=== PATIENT | male | born 1985 | race Two or more races ===

== ENCOUNTER 2018-01-30 23:02 | Emergency (ER) | payer MEDICARE, OTHER ==
[2018-01-30 23:18] VITALS: BP 136/85; PULSE 100; RESP 20; TEMP 98.3; O2SAT 97
[2018-01-30] MEDS ORDERED: DiphenhydrAMINE 12.5 mg/5 ml LIQ UD (5 ml) PO STA (23:32)
--- NOTE | 2018-01-30 23:32 | C.PDOC ---
History Of Present Illness 32 yo male come in for evaluation of cold sx since today AM associated with nasal congestion, runny nose, intermittent headache. Pt sts, " I need work note and advised what I can take for my cold sx". Otherwise, pt denies high fever, chills, severe headache, dizziness, vertigo, drooling, earache, CP, SOB, dyspnea , wheezing, abd. pain, V/D, UTI sx. Ambulate to ED for evaluation, not in nay apparent distress. Time Seen by Provider: 01/30/18 23:25 Chief Complaint (Nursing): Flu-like Symptoms History Per: Patient Past Medical History Reviewed: Historical Data, Nursing Documentation, Vital Signs Vital Signs: Last Vital Signs Temp 98.3 F 01/30/18 23:15 Pulse 100 H 01/30/18 23:15 Resp 20 01/30/18 23:15 BP 136/85 01/30/18 23:15 Pulse Ox 97 01/30/18 23:15 - Medical History PMH: Bipolar Disorder Family History: States: No Known Family Hx - Social History Hx Tobacco Use: No Hx Alcohol Use: No Hx Substance Use: No Review Of Systems Except As Marked, All Systems Reviewed And Found Negative. Constitutional: Positive for: Malaise. Negative for: Fever, Chills ENT: Positive for: Nose Discharge, Nose Congestion. Negative for: Ear Pain, Ear Discharge, Throat Pain, Throat Swelling Cardiovascular: Negative for: Chest Pain Respiratory: Negative for: Cough, Shortness of Breath, Wheezing Gastrointestinal: Negative for: Nausea, Vomiting, Abdominal Pain, Diarrhea Genitourinary: Negative for: Dysuria Musculoskeletal: Negative for: Neck Pain, Back Pain Neurological: Negative for: Altered Mental Status, Dizziness Physical Exam - Physical Exam Appears: Well, Non-toxic, No Acute Distress Skin: Normal Color, Warm, Dry, No Rash Head: Normacephalic Eye(s): bilateral: PERRL Ear(s): Bilateral: Normal Nose: No Flaring, Discharge (B/L nasal congestion with copious clear rhinorrhea) , Other (mild B/L paranasal tenderness, no edema, no erythema) Oral Mucosa: Moist, No Drooling Tongue: Normal Appearing Lips: Normal Appearing Throat: No Erythema, No Drooling Neck: Trachea Midline, Supple, Other ((-) meningeal sign) Cardiovascular: Rhythm Regular, No Murmur Respiratory: No Decreased Breath Sounds, No Accessory Muscle Use, No Stridor, No Wheezing Gastrointestinal/Abdominal: Soft, No Tenderness, No Distention, No Guarding Back: No CVA Tenderness Extremity: Normal ROM, No Deformity, No Swelling Neurological/Psych: Oriented x3, Normal Speech ED Course And Treatment O2 Sat by Pulse Oximetry: 97 Pulse Ox Interpretation: Normal Progress Note: On re-eval, pt is AAO#3, not in any apparent distress. Afebrile , hemodynamicaly stable. Tolerate Po well in ED. PulsEOx 97% ra. Neck: Supple , (-) meningeal sign. ENT: exam c/w acute rhinorrhea, no other acute findings. Lungs: CTA B/L, BS equal B/L. ABd: benign, (-) guaridng, (-) rebound. Neurologicaly intact. Pt has clinical findings c/w URI. Patient advised. ref. to f/u with PMD in 1-2 days for re-eval. return to ED if any worsening or new changes. Disposition Counseled Patient/Family Regarding: Diagnosis, Need For Followup, Rx Given - Disposition Referrals: Ni Kelley FNP [Advanced Practice Nurse] - Disposition: HOME/ ROUTINE Disposition Time: 23:32 Condition: STABLE Additional Instructions: Encourage fluids Take medication as prescribed Follow up with PMD in 2-3 days for re-evaluation. Return to ED if any worsening or new changes Prescriptions: Loratadine [Claritin] 10 mg PO DAILY #10 tab Prednisone [Deltasone] 40 mg PO DAILY #6 tablet Pseudoephedrine HCl [Sudafed 12-Hour] 120 mg PO DAILY #7 tablet.er Instructions: Viral Upper Respiratory Infection, Adult (DC) Forms: [employer] (Slovenian), Work Excuse - Clinical Impression Clinical Impression: URI (upper respiratory infection)
== END 2018-01-30 23:41 | disposition home or self-care (01) ==
LOC: C.ER 23:02
DX: J06.9 Acute upper respiratory infection, unspecified (principal)

== ENCOUNTER 2018-02-28 23:09 | Emergency (ER) | payer OTHER ==
[2018-02-28 23:09] VITALS: BMI 28.7
[2018-02-28 23:16] VITALS: TEMP 97.7
[2018-03-01] LABS: ALB/GLOB RATIO 1.2 (1.0-2.1); ALBUMIN 4.1 g/dL (3.5-5.0); ALT/SGPT 29 U/L (21-72); AST/SGOT 33 U/L (17-59); BLOOD UREA NITROGEN 13 mg/dL (9-20); CALCIUM 9.1 mg/dl (8.6-10.4); GFR AFRICAN-AMERICAN > 60; GFR NON-AFRICAN AMERICAN > 60; LIPASE 44 U/L (23-300)
[2018-03-01 00:01] LABS: BASO % 0.3 % (0.0-2.0); EOS # 0.2 K/uL (0.0-0.7); EOS % 2.9 % (0.0-4.0); HEMOGLOBIN 13.1 g/dL (12.0-18.0); LYMPH # 1.9 K/uL (1.0-4.3); LYMPH % 27.7 % (20.0-40.0); MEAN CELL VOLUME 92.2 fL (80.0-94.0); MEAN CORPUSCULAR HEMOGLOBIN 31.3 pg (27.0-31.0); MEAN PLATELET VOLUME 7.1 fL (7.2-11.7); MONO # 0.4 K/uL (0.0-0.8); MONO % 5.3 % (0.0-10.0); NEUT # 4.3 K/uL (1.8-7.0); NEUT % 63.8 % (50.0-75.0); RBC 4.17 Mil/uL (4.40-5.90); RED CELL DISTRIBUTION WIDTH 12.8 % (11.5-14.5); WHITE BLOOD COUNT 6.8 K/uL (4.8-10.8)
[2018-03-01 00:08] LABS: URINE BILIRUBIN NEGATIVE (NEGATIVE); URINE BLOOD NEGATIVE (NEGATIVE); URINE CLARITY Clear (Clear); URINE COLOR Straw (YELLOW); URINE GLUCOSE (UA) NORMAL (Normal); URINE LEUKOCYTE ESTERASE NEG Leu/uL (Negative); URINE PROTEIN NEGATIVE (NEGATIVE); URINE UROBILINOGEN NORMAL mg/dL (0.2-1.0)
--- NOTE | 2018-03-01 00:15 | C.PDOC ---
History Of Present Illness 32 year old male presents to the ED c/o right sided chest pain, upper abdominal pain, and infra scapular pain that started approximately 5 hours ago. Patient reports he ate a slice of pizza with mushrooms after which he thinks the symptoms started. Patient reports pain worsens with movement and deep breaths. Patient denies nausea, vomit, SOB, diarrhea. Time Seen by Provider: 02/28/18 23:23 Chief Complaint (Nursing): Abdominal Pain History Per: Patient History/Exam Limitations: no limitations Onset/Duration Of Symptoms: Hrs (5) Current Symptoms Are (Timing): Still Present Context: Food Location Of Pain/Discomfort: Diffuse Radiation Of Pain To:: Back, Chest Quality Of Discomfort: "Pain" Associated Symptoms: Back Pain Exacerbating Factors: Food Alleviating Factors: None Recent travel outside of the [place]: No Additional History Per: Patient Past Medical History Reviewed: Historical Data, Nursing Documentation, Vital Signs Vital Signs: Last Vital Signs Temp 97.7 F 02/28/18 23:13 Pulse 74 03/01/18 00:39 Resp 18 03/01/18 00:39 BP 122/84 03/01/18 00:39 Pulse Ox 98 03/01/18 00:39 - Medical History PMH: Bipolar Disorder Comment Only: Schizophrenia (pt denies as per patient) Surgical History: No Surg Hx Family History: States: Unknown Family Hx - Social History Hx Tobacco Use: No Hx Alcohol Use: No Hx Substance Use: No - Immunization History Hx Tetanus Toxoid Vaccination: No Hx Influenza Vaccination: No Hx Pneumococcal Vaccination: No Review Of Systems Constitutional: Negative for: Fever, Chills Cardiovascular: Positive for: Chest Pain Respiratory: Negative for: Cough, Shortness of Breath Gastrointestinal: Positive for: Abdominal Pain. Negative for: Nausea, Vomiting Musculoskeletal: Positive for: Back Pain Skin: Negative for: Rash Neurological: Negative for: Weakness, Numbness Physical Exam - Physical Exam Appears: Non-toxic, No Acute Distress Skin: Normal Color, Warm, Dry Head: Atraumatic, Normacephalic Eye(s): bilateral: Normal Inspection Oral Mucosa: Moist Neck: Normal ROM, Supple Chest: Symmetrical, Tenderness (right inferior chest wall) Cardiovascular: Rhythm Regular, No Murmur Respiratory: Normal Breath Sounds, No Rales, No Rhonchi, No Wheezing Gastrointestinal/Abdominal: Soft, No Tenderness, No Guarding, No Rebound Back: Other (right infrascapular tenderness) Extremity: Normal ROM, No Tenderness, No Swelling Neurological/Psych: Oriented x3, Normal Motor, Normal Sensation Gait: Steady ED Course And Treatment - Laboratory Results Result Diagrams: 02/28/18 23:39 02/28/18 23:39 ECG: Interpreted By Me, Viewed By Me ECG Rhythm: Sinus Rhythm ECG Interpretation: Normal Interpretation Of ECG: Normal intervals, normal axis Rate From EC (BPM) O2 Sat by Pulse Oximetry: 97 (On RA) Pulse Ox Interpretation: Normal - Radiology CXR: Interpreted by Me, Viewed By Me CXR Interpretation: Yes: No Acute Disease. No: Infiltrates Medical Decision Making Medical Decision Making: Assessment: muscle spams Plan: * EKG * CXR * UA * Labs * Protonix 40 mg IVP * Toradol 30 mg IVP Patient reports he feels better, wants to be D/C and go home. Patient was D/C with musculoskeletal pain. Patient was advised to follow up with PMD in 1-2 days for further evaluation. Disposition Counseled Patient/Family Regarding: Studies Performed, Diagnosis, Need For Followup, Rx Given - Disposition Referrals: [facility] [Outside] Disposition: HOME/ ROUTINE Disposition Time: 00:30 Condition: IMPROVED Additional Instructions: follow up with your doctor or medical clinic in 2 days call to make an appointment take medications as needed return to ER if symptoms worsens or progress Prescriptions: Famotidine [Pepcid] 20 mg PO BID #20 tab Naproxen [Naprosyn] 500 mg PO BID PRN #16 tab PRN Reason: Pain, Moderate (4-7) Instructions: Muscle and Bone Pain (DC) Forms: General Discharge Instructions, [facility] (Azeri), Work Excuse - Clinical Impression Clinical Impression: Abdominal pain, Musculoskeletal chest pain - Scribe Statement The provider has reviewed the documentation as recorded by the Scribe Ventura Akthar All medical record entries made by the Scribe were at my direction and personally dictated by me. I have reviewed the chart and agree that the record accurately reflects my personal performance of the history, physical exam, medical decision making, and the department course for this patient. I have also personally directed, reviewed, and agree with the discharge instructions and disposition.
[2018-03-01 00:40] VITALS: BP 122/84; PULSE 74; RESP 18
[2018-03-01 00:45] VITALS: O2SAT 97
--- NOTE | 2018-03-01 11:22 | RAD ---
HISTORY: SOB COMPARISON: No prior. TECHNIQUE: Chest PA and lateral FINDINGS: LUNGS: No active pulmonary disease. PLEURA: No significant pleural effusion identified. No pneumothorax apparent. CARDIOVASCULAR: Normal. OSSEOUS STRUCTURES: No significant abnormalities. VISUALIZED UPPER ABDOMEN: Normal. OTHER FINDINGS: None. IMPRESSION: No active disease.
== END 2018-03-01 00:39 | disposition home or self-care (01) ==
LOC: MERGE 23:09 → C.ER 23:09
DX: R10.9 Unspecified abdominal pain (principal); R07.89 Other chest pain
CPT/HCPCS: 71046; 80053; 81001; 83690; 84484; 85025; 96374; 96375; 99285; C9113; J1885

== ENCOUNTER 2018-08-25 18:01 | Emergency (ER) | payer OTHER ==
[2018-08-25 18:03] VITALS: BMI 28.7
[2018-08-25 18:11] VITALS: RESP 18
--- NOTE | 2018-08-25 18:53 | C.PDOC ---
History Of Present Illness 33 y/o male, w/PMhx of bipolar disorder, presents to the ER complaining of headache which has been present for the past few weeks. Patient states that his psychiatrist recently changed his medications. Patient reports that he is taking Trileptal, Cogentin, and Respirdal.He notes that every time he takes the medications, he has a headache and feels tired. He also notes that his mother told him to leave her house today. Denies having CP, SOB, fever, chills, nausea, and vomiting. Time Seen by Provider: 08/25/18 18:53 Chief Complaint (Nursing): Psychiatric Evaluation History Per: Patient Onset/Duration Of Symptoms: Days Current Symptoms Are (Timing): Still Present Severity: Moderate Past Medical History Reviewed: Historical Data, Nursing Documentation, Vital Signs Vital Signs: Last Vital Signs Temp 97.9 F 08/25/18 21:22 Pulse 78 08/25/18 21:22 Resp 18 08/25/18 21:22 BP 131/87 08/25/18 21:22 Pulse Ox 99 08/26/18 13:07 - Medical History PMH: Bipolar Disorder Comment Only: Schizophrenia (pt denies as per patient) Surgical History: No Surg Hx Family History: States: No Known Family Hx - Social History Hx Tobacco Use: No Hx Alcohol Use: No Hx Substance Use: No - Immunization History Hx Tetanus Toxoid Vaccination: No Hx Influenza Vaccination: No Hx Pneumococcal Vaccination: No Review Of Systems Except As Marked, All Systems Reviewed And Found Negative. Constitutional: Negative for: Fever, Chills Cardiovascular: Negative for: Chest Pain Respiratory: Negative for: Shortness of Breath Neurological: Positive for: Headache Physical Exam - Physical Exam Appears: Non-toxic, No Acute Distress, Other (pressured speech) Skin: Normal Color, Warm, Dry Head: Atraumatic, Normacephalic Eye(s): bilateral: Normal Inspection Nose: Normal Oral Mucosa: Moist Neck: Supple, Other (no meningeal signs) Chest: Symmetrical Cardiovascular: Rhythm Regular Respiratory: Normal Breath Sounds, No Rales, No Rhonchi, No Wheezing Gastrointestinal/Abdominal: Normal Exam, Soft, No Tenderness, No Guarding, No Rebound Extremity: Normal ROM Extremity: Bilateral: Atraumatic Neurological/Psych: Oriented x3, No Normal Speech (pressured speech), Normal Motor, Normal Sensation ED Course And Treatment - Laboratory Results Result Diagrams: 08/25/18 20:33 08/25/18 20:33 O2 Sat by Pulse Oximetry: 99 (RA) Pulse Ox Interpretation: Normal Medical Decision Making Medical Decision Making: Plan: --Labs --UA 2111 medically clear: no meningeal signs, sy not worse of life, no sudden in onset. NO FND cleared by Crisis for f/u w/ pts psych will d/c home Disposition - Disposition Referrals: [facility] [Outside] [facility] [Outside] Disposition: HOME/ ROUTINE Disposition Time: 21:13 Condition: GOOD Additional Instructions: FOLLOW UP WITH YOUR PSYCHIATRIS DISCUSSED WITH CRISIS Instructions: Bipolar Disorder Forms: [employer] (Upper Sorbian) - Clinical Impression Clinical Impression: Psychiatric complaint - Scribe Statement The provider has reviewed the documentation as recorded by the Pattyibe Kathya Ferrer Provider Attestation: All medical record entries made by the Scribe were at my direction and personally dictated by me. I have reviewed the chart and agree that the record accurately reflects my personal performance of the history, physical exam, medical decision making, and the department course for this patient. I have also personally directed, reviewed, and agree with the discharge instructions and disposition.
[2018-08-25 20:21] LABS: URINE BILIRUBIN NEGATIVE (NEGATIVE); URINE BLOOD NEGATIVE (NEGATIVE); URINE CLARITY Clear (Clear); URINE COLOR Colorless (YELLOW); URINE GLUCOSE (UA) NORMAL (Normal); URINE LEUKOCYTE ESTERASE NEG Leu/uL (Negative); URINE PROTEIN NEGATIVE (NEGATIVE); URINE UROBILINOGEN NORMAL mg/dL (0.2-1.0)
[2018-08-25 20:34] LABS: BARBITURATES, UR NEGATIVE (NEGATIVE); BENZODIAZEPINES, UR NEGATIVE (NEGATIVE); OPIATES, UR NEGATIVE (NEGATIVE); PHENCYCLIDINE, UR NEGATIVE (NEGATIVE)
[2018-08-25 20:37] LABS: BASO % 0.4 % (0.0-2.0); EOS # 0.2 K/uL (0.0-0.7); EOS % 2.2 % (0.0-4.0); HEMOGLOBIN 14.1 g/dL (12.0-18.0); LYMPH # 2.9 K/uL (1.0-4.3); LYMPH % 30.3 % (20.0-40.0); MEAN CELL VOLUME 88.5 fL (80.0-94.0); MEAN CORPUSCULAR HEMOGLOBIN 31.7 pg (27.0-31.0); MEAN CORPUSCULAR HGB CONC 35.8 g/dL (33.0-37.0); MEAN PLATELET VOLUME 6.8 fL (7.2-11.7); MONO # 0.5 K/uL (0.0-0.8); MONO % 5.7 % (0.0-10.0); NEUT # 5.9 K/uL (1.8-7.0); NEUT % 61.4 % (50.0-75.0); NRBC % 0.1 % (0.0-2.0); RBC 4.46 Mil/uL (4.40-5.90); RED CELL DISTRIBUTION WIDTH 12.8 % (11.5-14.5); WHITE BLOOD COUNT 9.6 K/uL (4.8-10.8)
[2018-08-25 20:49] LABS: ALB/GLOB RATIO 1.4 (1.0-2.1); ALBUMIN 4.5 g/dL (3.5-5.0); ALT/SGPT 25 U/L (21-72); AST/SGOT 29 U/L (17-59); BLOOD UREA NITROGEN 16 mg/dL (9-20); CALCIUM 9.9 mg/dl (8.6-10.4); GFR NON-AFRICAN AMERICAN > 60
[2018-08-25 20:56] LABS: ACETAMINOPHEN < 10.0 ug/mL (10.0-30.0); SALICYLATE < 1.0 mg/dL 1
[2018-08-25 21:25] VITALS: BP 131/87; PULSE 78; TEMP 97.9
[2018-08-26 13:08] VITALS: O2SAT 99
== END 2018-08-25 21:28 | disposition home or self-care (01) ==
LOC: C.ER 18:01
DX: F99 Mental disorder, not otherwise specified (principal)

== ENCOUNTER 2018-10-29 09:39 | Emergency (ER) | payer MEDICARE, OTHER ==
[2018-10-29 09:39] VITALS: BMI 28.7
[2018-10-29 09:50] VITALS: BP 132/85; RESP 18; TEMP 98; O2SAT 97
[2018-10-29] MEDS ORDERED: Albuterol-Ipratrop 3 mg / 0.5 (3 ml) UD INH STA (10:01)
--- NOTE | 2018-10-29 10:03 | C.PDOC ---
History Of Present Illness 33 y/o male, w/PMhx of bipolar disorder, presents to the ER complaining of cough which has become gradually worse over the past 3 weeks. Patient states that he has productive cough with thick white sputum. Patient reports that he has associated nasal congestion. He notes that the cough is worse at night. He took cold medications without relief. Denies having headache, dizziness, fever, chills, CP, SOB, nausea, vomiting, hemoptysis, abdominal pain., or any other associated symptoms. Chief Complaint (Nursing): Cough, Cold, Congestion History Per: Patient History/Exam Limitations: no limitations Onset/Duration Of Symptoms: Days Current Symptoms Are (Timing): Still Present Severity: Moderate Past Medical History Reviewed: Historical Data, Nursing Documentation, Vital Signs Vital Signs: Last Vital Signs Temp 98 F 10/29/18 09:48 Pulse 100 H 10/29/18 09:48 Resp 18 10/29/18 09:48 BP 132/85 10/29/18 09:48 Pulse Ox 97 10/29/18 09:48 - Medical History PMH: Bipolar Disorder Comment Only: Schizophrenia (pt denies as per patient) Surgical History: No Surg Hx Family History: States: No Known Family Hx - Social History Hx Tobacco Use: No Hx Alcohol Use: No Hx Substance Use: No - Immunization History Hx Tetanus Toxoid Vaccination: No Hx Influenza Vaccination: No Hx Pneumococcal Vaccination: No Review Of Systems Except As Marked, All Systems Reviewed And Found Negative. Constitutional: Negative for: Fever, Chills ENT: Positive for: Nose Congestion Cardiovascular: Negative for: Chest Pain Respiratory: Positive for: Cough, Sputum (white sputum). Negative for: Shortness of Breath Gastrointestinal: Negative for: Nausea, Vomiting Neurological: Negative for: Headache, Dizziness Physical Exam - Physical Exam Appears: Well, Non-toxic, No Acute Distress, Other (Manic; flight of ideas) Skin: Normal Color, Warm, Dry Head: Atraumatic, Normacephalic Eye(s): bilateral: Normal Inspection, PERRL, EOMI Ear(s): Bilateral: Normal Nose: Normal Oral Mucosa: Moist Throat: Normal, No Erythema, No Exudate Neck: Normal, Normal ROM, No Midline Cervical Tenderness, No Paracervical Tenderness, Supple Lymphatic: Normal Exam, No Adenopathy Chest: Symmetrical, No Deformity, No Tenderness Cardiovascular: Rhythm Regular Respiratory: Normal Breath Sounds, No Rales, No Rhonchi, No Wheezing Gastrointestinal/Abdominal: Normal Exam, Bowel Sounds (normal), Soft, No Tenderness Back: Normal Inspection, No CVA Tenderness, No Vertebral Tenderness Extremity: Normal ROM Extremity: Bilateral: Atraumatic, No Pedal Edema, Normal Color And Temperature, Normal ROM Pulses: Left Radial: Normal, Right Radial: Normal Neurological/Psych: Oriented x3, Normal Speech (fast ), Normal Motor, Normal Sensation Gait: Steady ED Course And Treatment O2 Sat by Pulse Oximetry: 97 (RA) Pulse Ox Interpretation: Normal Medical Decision Making Medical Decision Making: Initial Plan: --CXR --Duoneb Updates: Patient refused to have CXR and Dunoeb treatment. Patient has been discharged and instructed to follow up with PMD in 2 days. Plan of care discussed with patient, and strict instructions given regarding prescriptions, importance of follow up, and signs to return to Emergency Department, to include fevers, chills, chest pain, difficulty breathing, or any other new/worsening symptoms. Patient verbalizes understanding of discussion. Patient A&Ox3, ambulating with steady gait, stable for discharge home. Disposition - Disposition Referrals: [facility] [Outside] Disposition: HOME/ ROUTINE Disposition Time: 10:00 Condition: STABLE Additional Instructions: Take antibiotic as prescribed Take cough pills every 8 hours as needed for cough Use inhaler every 6 hours as needed Followup with primary doctor within 2 days Return to ER for new/worsening symptoms Prescriptions: Albuterol HFA [Ventolin HFA 90 mcg/actuation (8 g)] 2 puff IH Q6H PRN #60 puff PRN Reason: Cough Azithromycin [Z-Arnulfo] 250 mg PO DAILY #6 tab Benzonatate [Tessalon Perle] 100 mg PO Q8H PRN #21 capsule PRN Reason: Cough Instructions: Upper Respiratory Infection (ED) Forms: [facility] (Romansh), Work Excuse - Clinical Impression Clinical Impression: Upper respiratory infection - PA / EVENT MARKETING MANAGER / Resident Statement MD/DO has reviewed & agrees with the documentation as recorded. - Scribe Statement The provider has reviewed the documentation as recorded by the Bri Ferrer Provider Attestation All medical record entries made by the Scribe were at my direction and personally dictated by me. I have reviewed the chart and agree that the record accurately reflects my personal performance of the history, physical exam, medical decision making, and the department course for this patient. I have also personally directed, reviewed, and agree with the discharge instructions and disposition.
[2018-10-29 10:18] VITALS: PULSE 83
== END 2018-10-29 10:18 | disposition home or self-care (01) ==
LOC: C.ER 09:39
DX: J06.9 Acute upper respiratory infection, unspecified (principal)

== ENCOUNTER 2018-11-21 13:55 | Emergency (ER) | payer MEDICARE, OTHER ==
[2018-11-21 13:56] VITALS: BMI 28.7
[2018-11-21 14:43] VITALS: RESP 16; TEMP 98.2
--- NOTE | 2018-11-21 15:11 | C.PDOC ---
History Of Present Illness 33 y/o male with PMHx of bipolar disorder brought in by EMS, accompanied by BRICE, for psychiatric evaluation. As per EMS, patients mother called 911 after he refused to leave her house. Patient states that his mother called EMS after he refused to go shopping with her. Patient noted to have flight of ideas on arrival to the ED. He denies any suicidal or homicidal ideation. No physical complaints offered. Time Seen by Provider: 11/21/18 14:00 Chief Complaint (Nursing): Psychiatric Evaluation History Per: Patient History/Exam Limitations: no limitations Suicide/Self Injury Attempted (Context): None Involuntary Hold By: None Additional History Per: EMS, Law Enforcement Past Medical History Reviewed: Historical Data, Nursing Documentation, Vital Signs Vital Signs: Last Vital Signs Temp 98.2 F 11/21/18 14:39 Pulse 80 11/21/18 14:39 Resp 16 11/21/18 14:39 BP 135/86 11/21/18 14:39 Pulse Ox 98 11/21/18 14:39 - Medical History PMH: Bipolar Disorder Comment Only: Schizophrenia (pt denies as per patient) Family History: States: Unknown Family Hx - Social History Hx Tobacco Use: No Hx Alcohol Use: No Hx Substance Use: No - Immunization History Hx Tetanus Toxoid Vaccination: No Hx Influenza Vaccination: No Hx Pneumococcal Vaccination: No Review Of Systems Except As Marked, All Systems Reviewed And Found Negative. Constitutional: Negative for: Fever Cardiovascular: Negative for: Chest Pain Respiratory: Negative for: Shortness of Breath Gastrointestinal: Negative for: Abdominal Pain Neurological: Negative for: Weakness, Headache Psych: Positive for: Other (Aggressive behavior, Flight of ideas). Negative for: Suicidal ideation (or homicidal ideation) Physical Exam - Physical Exam Additional Physical Exam Comments: Constitutional: No acute distress. Head: Normocephalic. Atraumatic. Eyes: PERRL. ENT: Moist mucous membranes. Neck: Supple. Cardiovascular: Regular rate. Radial pulse 2+ bilaterally. Chest: No tenderness. Respiratory: Clear to auscultation bilaterally. GI: Soft. Nontender. Nondistended. Back: No CVA tenderness. Musculoskeletal: No tenderness or swelling of extremities. Skin: No rash. Neurologic: Alert, no focal deficit. Calm, cooperative. + Flight of ideas. ED Course And Treatment O2 Sat by Pulse Oximetry: 98 (RA) Pulse Ox Interpretation: Normal Medical Decision Making Medical Decision Making: Plan: - Crisis evaluation Patient has been in this ED multiple times for psychiatric complaints. No twin cation currently for inpatient involuntary admission. Will discharge, return to ED at any time for any SI/HI/acute hallucinations. Disposition - Disposition Disposition: HOME/ ROUTINE Disposition Time: 15:54 Condition: STABLE Forms: [employer] (Occitan) - Clinical Impression Clinical Impression: Psychiatric complaint - Scribe Statement The provider has reviewed the documentation as recorded by the Bri Henry Provider Attestation: All medical record entries made by the Bri were at my direction and personally dictated by me. I have reviewed the chart and agree that the record accurately reflects my personal performance of the history, physical exam, medical decision making, and the department course for this patient. I have also personally directed, reviewed, and agree with the discharge instructions and disposition.
[2018-11-21 16:16] VITALS: BP 138/70; PULSE 78; O2SAT 99
== END 2018-11-21 16:14 | disposition home or self-care (01) ==
LOC: C.ER 13:55
DX: Z00.8 Encounter for other general examination (principal); F31.9 Bipolar disorder, unspecified